=== PATIENT | female | born 1980 | race Caucasian/White ===

== ENCOUNTER 2022-05-26 17:02 | Emergency (ER) | payer SELFPAY ==
[~2022-05-26] VITALS: Ht 167.6 cm; Wt 60.0 kg
[2022-05-26 17:12] VITALS: BP 124/74
[2022-05-26] MEDS ORDERED: TRAMADOL 50MG TABLET PO ONE (18:15)
== END 2022-05-26 19:45 | disposition home or self-care (01) ==
LOC: ER 17:02
DX: S52.591A Other fractures of lower end of right radius, initial encounter for closed fracture (principal); S62.622A Displaced fracture of middle phalanx of right middle finger, initial encounter for closed fracture; Z88.6 Allergy status to analgesic agent; Z88.0 Allergy status to penicillin; Z91.040 Latex allergy status; W17.89XA Other fall from one level to another, initial encounter; Y92.810 Car as the place of occurrence of the external cause
CPT/HCPCS: 29125; 73110; 73130; 81025; 99284; A4565